=== PATIENT | female | born 1970 | race African-American/Black ===

== ENCOUNTER 2021-02-01 14:05 | Inpatient (IN) ==
[2021-02-01] MEDS ORDERED: SODIUM CHLORIDE 0.9% 1,000 ML IV STA (14:33)
[2021-02-01 14:50] LABS: Basophils % 0.2 % (0.0-0.8); Eosinophils # 0.1 10*3/uL (0.0-0.87); Eosinophils % 1.2 % (0.00-10.9); Hematocrit 40.6 VOL% (35.7-47.0); Hemoglobin 13.8 GM/DL (12.0-16.0); Immature Granulocytes % 0.4 %; Immature Granulocytes Absolute 0.02 #; Lymphocytes # 1.3 10*3/uL (1.4-4.0); Lymphocytes % 24.2 % (21.3-54.2); Mean Corpuscular Volume 89.2 FL (87-102); Mean Platelet Volume 9.9 FL (9.6-12.0); Platelet Count 235 T/CUMM (130-400); Red Blood Count 4.55 MC/CUMM (3.8-5.5); White Blood Count 5.2 T/CUMM (4-12)
[2021-02-01 15:08] LABS: Albumin 3.3 G/DL (3.4-5.0); Bilirubin,Total 0.6 MG/DL (0.20-1.00); Calcium 8.5 MG/DL (8.5-10.1); Osmolality,Calculated 287.4 MOS/KG (273-304); Potassium 4.9 MMOL/L (3.5-5.1); Total Protein 6.9 G/DL (6.4-8.2)
[2021-02-01] MEDS ORDERED: MAGNESIUM SULF RIDER 2 GM/50 ML PREMIX IV ONE (15:57)
[2021-02-01] MEDS ORDERED: GLUCAGON 1 MG VIAL IM PRN (16:01)
[2021-02-01] MEDS ORDERED: DEXTROSE 50% 25 GM/50 ML VIAL IV PRN (16:01)
[2021-02-01] MEDS ORDERED: ONDANSETRON 4 MG/2 ML VIAL IV PRN (16:01)
[2021-02-01] MEDS: ENOXAPARIN 120 MG/0.8 ML SYRINGE SUBCUT SCH (17:35)
[2021-02-01] MEDS: SODIUM CHLORIDE 0.9% 1,000 ML IV SCH (17:52)
[2021-02-01] MEDS: AZITHROMYCIN INJ 500 MG in SODIUM CHLORIDE 0.9% 250 ML IV SCH (18:46)
[2021-02-01] MEDS: ALBUTEROL/IPRATROPIUM 3 ML NEB RESP TX SCH (20:25)
[2021-02-01] MEDS: diphenhydrAMINE CAP 25 MG CAPSULE PO PRN (20:55)
[2021-02-02] MEDS: ACETAMINOPHEN 325 MG TABLET PO PRN ×3 (01:14→16:50)
[2021-02-02] MEDS: ALBUTEROL/IPRATROPIUM 3 ML NEB RESP TX SCH ×4 (01:41→19:54)
[2021-02-02] MEDS: SODIUM CHLORIDE 0.9% 1,000 ML IV SCH ×4 (01:53→22:00)
[2021-02-02 06:55] LABS: Basophils % 0.1 % (0.0-0.8); Eosinophils # 0.1 10*3/uL (0.0-0.87); Eosinophils % 0.9 % (0.00-10.9); Hematocrit 33.3 VOL% (35.7-47.0); Immature Granulocytes % 0.9 %; Immature Granulocytes Absolute 0.13 #; Lymphocytes # 0.5 10*3/uL (1.4-4.0); Lymphocytes % 3.2 % (21.3-54.2); Mean Corpuscular HGB Conc 32.1 GM/DL (32-36); Mean Corpuscular Volume 98.8 FL (87-102); Mean Platelet Volume 12.4 FL (9.6-12.0); Monocytes % 1.9 % (1.7-12.7); Platelet Count 210 T/CUMM (130-400); Red Cell Distribution Width 13.9 % (9.3-17.3)
[2021-02-02 06:58] LABS: Hemoglobin 10.7 GM/DL (12.0-16.0); Red Blood Count 3.37 MC/CUMM (3.8-5.5); White Blood Count 14.9 T/CUMM (4-12)
[2021-02-02 07:01] LABS: Band Neutrophils 1 % (0-10); Eosinophils 2 % (0-10); Hypochromasia 1+; Lymphocytes 6 % (20-55); Microcytosis 1+; Platelet Estimate Adequate; Segmented Neutrophils 90 % (50-85); Total Cells Counted 100
[2021-02-02 07:02] LABS: Osmolality,Calculated 284.5 MOS/KG (273-304); Potassium 4.6 MMOL/L (3.5-5.1)
[2021-02-02] MEDS: PANTOPRAZOLE 40 MG TABLET PO SCH (10:04)
[2021-02-02] MEDS: ENOXAPARIN 120 MG/0.8 ML SYRINGE SUBCUT SCH (10:05)
[2021-02-02] MEDS: diphenhydrAMINE CAP 25 MG CAPSULE PO PRN (10:11)
[2021-02-02] MEDS: MAGNESIUM OXIDE 400 MG TABLET PO SCH ×2 (10:11→20:48)
[2021-02-02] MEDS: MEROPENEM 500 MG in SODIUM CHLORIDE 0.9% 100 ML IV SCH ×2 (10:14→18:06)
[2021-02-02] MEDS: HYDROCORTISONE 1% CREAM 28 GM TUBE TOP SCH ×2 (11:39→20:49)
[2021-02-02] MEDS ORDERED: AMPICILLIN/SULBACTAM 3,000 MG in SODIUM CHLORIDE 0.9% 100 ML IV SCH (12:00)
[2021-02-02] MEDS ORDERED: SODIUM CHLORIDE 0.9% 1,000 ML IV ONE (12:43)
[2021-02-02] MEDS: AZITHROMYCIN INJ 500 MG in SODIUM CHLORIDE 0.9% 250 ML IV SCH (16:51)
[2021-02-02] MEDS: ESCITALOPRAM 10 MG TABLET PO SCH (18:05)
[2021-02-02] MEDS: IBUPROFEN 600 MG TABLET PO PRN (18:20)
[2021-02-02] MEDS: PREGABALIN 75 MG CAPSULE PO SCH (20:48)
[2021-02-02] MEDS: Progesterone Micronized 200 mg capsule PO SCH (20:49)
[2021-02-03] MEDS: ALBUTEROL/IPRATROPIUM 3 ML NEB RESP TX SCH ×4 (01:10→20:20)
[2021-02-03] MEDS: MEROPENEM 500 MG in SODIUM CHLORIDE 0.9% 100 ML IV SCH ×3 (01:45→17:34)
[2021-02-03] MEDS: SODIUM CHLORIDE 0.9% 1,000 ML IV SCH ×3 (01:50→23:30)
[2021-02-03] MEDS: ACETAMINOPHEN 325 MG TABLET PO PRN ×2 (04:22→11:22)
[2021-02-03 05:18] LABS: Eosinophils # 0.2 10*3/uL (0.0-0.87); Eosinophils % 2.3 % (0.00-10.9); Hematocrit 28.1 VOL% (35.7-47.0); Hemoglobin 9.1 GM/DL (12.0-16.0); Immature Granulocytes % 0.5 %; Immature Granulocytes Absolute 0.05 #; Lymphocytes # 0.4 10*3/uL (1.4-4.0); Lymphocytes % 4.4 % (21.3-54.2); Mean Corpuscular HGB Conc 32.4 GM/DL (32-36); Mean Corpuscular Volume 98.9 FL (87-102); Mean Platelet Volume 12.2 FL (9.6-12.0); Neutrophils % 91.8 % (38.7-73.9); Platelet Count 156 T/CUMM (130-400); Red Blood Count 2.84 MC/CUMM (3.8-5.5); Red Cell Distribution Width 14.2 % (9.3-17.3); White Blood Count 9.6 T/CUMM (4-12)
[2021-02-03 05:37] LABS: Calcium 7.4 MG/DL (8.5-10.1); Osmolality,Calculated 291.1 MOS/KG (273-304)
[2021-02-03 05:40] LABS: Calcium 7.5 MG/DL (8.5-10.1); Osmolality,Calculated 288.4 MOS/KG (273-304); Potassium 3.9 MMOL/L (3.5-5.1)
[2021-02-03 06:07] LABS: Band Neutrophils 3 % (0-10); Eosinophils 3 % (0-10); Lymphocytes 3 % (20-55); Segmented Neutrophils 91 % (50-85); Total Cells Counted 100
[2021-02-03 06:08] LABS: Microcytosis 1+; Ovalocytes Slight; Platelet Estimate Adequate
[2021-02-03] MEDS ORDERED: MAGNESIUM SULF RIDER 4 GM/100 ML PREMIX IV ONE (07:25)
[2021-02-03 08:42] LABS: Free T4 (Free Thyroxine) 0.92 NG/DL (0.76-1.46); Thyroid Stimulating Hormone 1.36 uIU/ml (0.358-3.74)
[2021-02-03] MEDS: PANTOPRAZOLE 40 MG TABLET PO SCH (10:12)
[2021-02-03] MEDS: AZITHROMYCIN 250 MG TABLET PO SCH (10:12)
[2021-02-03] MEDS: diphenhydrAMINE CAP 25 MG CAPSULE PO PRN (10:12)
[2021-02-03] MEDS: MAGNESIUM OXIDE 400 MG TABLET PO SCH ×2 (10:13→20:14)
[2021-02-03] MEDS: PREGABALIN 75 MG CAPSULE PO SCH ×2 (10:13→20:14)
[2021-02-03] MEDS: DULoxetine 30 MG CAPSULE PO SCH (10:13)
[2021-02-03] MEDS: IBUPROFEN 600 MG TABLET PO PRN (10:13)
[2021-02-03] MEDS: FOLIC ACID 1 MG TABLET PO SCH (10:14)
[2021-02-03] MEDS: HYDROCORTISONE 1% CREAM 28 GM TUBE TOP SCH (10:15)
[2021-02-03] MEDS: ENOXAPARIN 40 MG/0.4 ML SYRINGE SUBCUT SCH ×2 (10:24→20:14)
[2021-02-03] MEDS: LEVOTHYROXINE 100 MCG TABLET PO SCH (11:22)
[2021-02-03 15:36] LABS: Calcium 7.6 MG/DL (8.5-10.1); Osmolality,Calculated 285.7 MOS/KG (273-304); Potassium 4.3 MMOL/L (3.5-5.1)
[2021-02-03] MEDS ORDERED: PHENOL 1.4% THROAT SPRAY 177 ML BOTTLE PO PRN (16:06)
[2021-02-03] MEDS: ESCITALOPRAM 10 MG TABLET PO SCH (17:30)
[2021-02-03] MEDS: methylPREDNISolone SOD SUC 40 MG/1 ML VIAL IV SCH (17:34)
[2021-02-03] MEDS: Progesterone Micronized 200 mg capsule PO SCH (20:14)
[2021-02-03] MEDS ORDERED: methylPREDNISolone SOD SUC 40 MG/1 ML VIAL IV SCH (21:00)
[2021-02-04] MEDS: ALBUTEROL/IPRATROPIUM 3 ML NEB RESP TX SCH ×4 (00:21→20:28)
[2021-02-04] MEDS ORDERED: HYDROCORTISONE 1% CREAM 28 GM TUBE TOP PRN (01:28)
[2021-02-04] MEDS: SODIUM CHLORIDE 0.9% 1,000 ML IV SCH ×3 (02:30→22:29)
[2021-02-04] MEDS: MEROPENEM 500 MG in SODIUM CHLORIDE 0.9% 100 ML IV SCH ×3 (02:34→17:32)
[2021-02-04] MEDS: methylPREDNISolone SOD SUC 40 MG/1 ML VIAL IV SCH ×2 (04:35→17:35)
[2021-02-04 05:20] LABS: Eosinophils % 0.1 % (0.00-10.9); Hematocrit 26.4 VOL% (35.7-47.0); Hemoglobin 8.6 GM/DL (12.0-16.0); Immature Granulocytes % 0.7 %; Immature Granulocytes Absolute 0.08 #; Lymphocytes # 0.4 10*3/uL (1.4-4.0); Lymphocytes % 3.9 % (21.3-54.2); Mean Corpuscular HGB Conc 32.6 GM/DL (32-36); Mean Corpuscular Volume 99.6 FL (87-102); Mean Platelet Volume 12.3 FL (9.6-12.0); Monocytes % 1.3 % (1.7-12.7); Platelet Count 171 T/CUMM (130-400); Red Blood Count 2.65 MC/CUMM (3.8-5.5); Red Cell Distribution Width 14.5 % (9.3-17.3); White Blood Count 11.1 T/CUMM (4-12)
[2021-02-04 05:38] LABS: Osmolality,Calculated 292.4 MOS/KG (273-304); Potassium 4.6 MMOL/L (3.5-5.1)
[2021-02-04] MEDS: ACETAMINOPHEN 325 MG TABLET PO PRN (05:40)
[2021-02-04] MEDS: LEVOTHYROXINE 100 MCG TABLET PO SCH (05:40)
[2021-02-04 05:41] LABS: Albumin 2.3 G/DL (3.4-5.0); Bilirubin,Direct 1.54 MG/DL (0.0-0.20); Bilirubin,Indirect 0.9 MG/DL (0.0-1.0); Bilirubin,Total 2.4 MG/DL (0.20-1.00); Total Protein 5.8 G/DL (6.4-8.2)
[2021-02-04 06:04] LABS: Band Neutrophils 2 % (0-10); Lymphocytes 4 % (20-55); Platelet Estimate Normal; Segmented Neutrophils 92 % (50-85); Total Cells Counted 100
[2021-02-04] MEDS ORDERED: ESTRADIOL 0.1 MG/24 HR TOP SCH (09:00)
[2021-02-04] MEDS: MAGNESIUM OXIDE 400 MG TABLET PO SCH ×2 (10:03→21:06)
[2021-02-04] MEDS: PREGABALIN 75 MG CAPSULE PO SCH ×2 (10:03→21:05)
[2021-02-04] MEDS: AZITHROMYCIN 250 MG TABLET PO SCH (10:03)
[2021-02-04] MEDS: FOLIC ACID 1 MG TABLET PO SCH (10:04)
[2021-02-04] MEDS: PANTOPRAZOLE 40 MG TABLET PO SCH (10:04)
[2021-02-04] MEDS: ENOXAPARIN 40 MG/0.4 ML SYRINGE SUBCUT SCH ×2 (10:04→21:04)
[2021-02-04] MEDS: DULoxetine 30 MG CAPSULE PO SCH ×2 (10:58→21:06)
[2021-02-04] MEDS: ESCITALOPRAM 10 MG TABLET PO SCH (17:30)
[2021-02-04] MEDS: Progesterone Micronized 200 mg capsule PO SCH (21:05)
[2021-02-05] MEDS: ALBUTEROL/IPRATROPIUM 3 ML NEB RESP TX SCH ×4 (01:17→20:00)
[2021-02-05] MEDS: MEROPENEM 500 MG in SODIUM CHLORIDE 0.9% 100 ML IV SCH ×3 (01:30→17:02)
[2021-02-05] MEDS: SODIUM CHLORIDE 0.9% 1,000 ML IV SCH ×3 (04:13→16:08)
[2021-02-05] MEDS: LEVOTHYROXINE 100 MCG TABLET PO SCH (05:52)
[2021-02-05] MEDS: methylPREDNISolone SOD SUC 40 MG/1 ML VIAL IV SCH ×2 (05:53→16:04)
[2021-02-05 06:14] LABS: Basophils % 0.1 % (0.0-0.8); Eosinophils % 0.1 % (0.00-10.9); Hematocrit 26.2 VOL% (35.7-47.0); Hemoglobin 8.4 GM/DL (12.0-16.0); Immature Granulocytes % 2.3 %; Immature Granulocytes Absolute 0.22 #; Lymphocytes # 1.7 10*3/uL (1.4-4.0); Lymphocytes % 17.1 % (21.3-54.2); Mean Corpuscular HGB Conc 32.1 GM/DL (32-36); Mean Corpuscular Volume 100.4 FL (87-102); Mean Platelet Volume 12.6 FL (9.6-12.0); Neutrophils % 76.4 % (38.7-73.9); Platelet Count 201 T/CUMM (130-400); Red Blood Count 2.61 MC/CUMM (3.8-5.5); Red Cell Distribution Width 14.6 % (9.3-17.3); White Blood Count 9.6 T/CUMM (4-12)
[2021-02-05 06:40] LABS: Calcium 8.5 MG/DL (8.5-10.1); Osmolality,Calculated 295.1 MOS/KG (273-304); Potassium 4.7 MMOL/L (3.5-5.1)
[2021-02-05 06:41] LABS: Anisocytosis 2+; Band Neutrophils 4 % (0-10); Lymphocytes 18 % (20-55); Nucleated Red Blood Cells 2 (0-5); Platelet Estimate Normal; Segmented Neutrophils 74 % (50-85); Total Cells Counted 100
[2021-02-05 06:42] LABS: Burr Cells Few; Macrocytosis 1+
[2021-02-05] MEDS: ENOXAPARIN 40 MG/0.4 ML SYRINGE SUBCUT SCH ×2 (08:26→20:52)
[2021-02-05] MEDS: MAGNESIUM OXIDE 400 MG TABLET PO SCH ×2 (08:27→20:53)
[2021-02-05] MEDS: AZITHROMYCIN 250 MG TABLET PO SCH (08:27)
[2021-02-05] MEDS: ACETAMINOPHEN 325 MG TABLET PO PRN (08:27)
[2021-02-05] MEDS: PANTOPRAZOLE 40 MG TABLET PO SCH (08:28)
[2021-02-05] MEDS: FOLIC ACID 1 MG TABLET PO SCH (08:28)
[2021-02-05] MEDS: PREGABALIN 75 MG CAPSULE PO SCH ×2 (08:28→20:53)
[2021-02-05] MEDS ORDERED: SODIUM CHLORIDE 0.9% 1,000 ML IV PRN (08:36)
[2021-02-05] MEDS: INSULIN LISPRO 100 UNIT/ML SUBCUT SCH ×3 (12:24→20:53)
[2021-02-05 14:21] LABS: Basophils % 0.3 % (0.0-0.8); Eosinophils % 0.1 % (0.00-10.9); Hematocrit 28.4 VOL% (35.7-47.0); Immature Granulocytes % 4.1 %; Immature Granulocytes Absolute 0.44 #; Lymphocytes # 2.2 10*3/uL (1.4-4.0); Lymphocytes % 20.6 % (21.3-54.2); Mean Corpuscular HGB Conc 31.7 GM/DL (32-36); Mean Corpuscular Volume 97.3 FL (87-102); Mean Platelet Volume 12.4 FL (9.6-12.0); Monocytes % 4.8 % (1.7-12.7); NRBC # 0.02 10*3/uL; Neutrophils % 70.1 % (38.7-73.9); Platelet Count 189 T/CUMM (130-400); Red Blood Count 2.92 MC/CUMM (3.8-5.5); Red Cell Distribution Width 15.4 % (9.3-17.3); White Blood Count 10.7 T/CUMM (4-12)
[2021-02-05] MEDS: ESCITALOPRAM 10 MG TABLET PO SCH (17:02)
[2021-02-05] MEDS: Progesterone Micronized 200 mg capsule PO SCH (20:52)
[2021-02-05] MEDS: DULoxetine 30 MG CAPSULE PO SCH (20:53)
[2021-02-06] MEDS: ALBUTEROL/IPRATROPIUM 3 ML NEB RESP TX SCH ×2 (00:50→06:55)
[2021-02-06] MEDS: MEROPENEM 500 MG in SODIUM CHLORIDE 0.9% 100 ML IV SCH ×2 (01:59→09:55)
[2021-02-06] MEDS: SODIUM CHLORIDE 0.9% 1,000 ML IV SCH (02:01)
[2021-02-06] MEDS: LEVOTHYROXINE 100 MCG TABLET PO SCH (05:37)
[2021-02-06] MEDS: methylPREDNISolone SOD SUC 40 MG/1 ML VIAL IV SCH (05:37)
[2021-02-06 06:41] LABS: Basophils # 0.1 10*3/uL (0.0-0.2); Basophils % 0.5 % (0.0-0.8); Eosinophils % 0.2 % (0.00-10.9); Hematocrit 26.9 VOL% (35.7-47.0); Hemoglobin 8.6 GM/DL (12.0-16.0); Immature Granulocytes % 4.8 %; Immature Granulocytes Absolute 0.58 #; Lymphocytes # 3.6 10*3/uL (1.4-4.0); Lymphocytes % 30.1 % (21.3-54.2); Mean Corpuscular Volume 99.3 FL (87-102); Mean Platelet Volume 12.5 FL (9.6-12.0); Monocytes % 7.2 % (1.7-12.7); NRBC # 0.02 10*3/uL; Neutrophils % 57.2 % (38.7-73.9); Platelet Count 187 T/CUMM (130-400); Red Blood Count 2.71 MC/CUMM (3.8-5.5); Red Cell Distribution Width 15.6 % (9.3-17.3); White Blood Count 12.1 T/CUMM (4-12)
[2021-02-06 07:10] LABS: Calcium 8.2 MG/DL (8.5-10.1); Potassium 4.4 MMOL/L (3.5-5.1)
[2021-02-06 07:19] LABS: Eosinophils 1 % (0-10); Hypochromasia Slight; Lymphocytes 29 % (20-55); Microcytosis 1+; Myelocytes 1 %; Ovalocytes Slight; Segmented Neutrophils 56 % (50-85); Total Cells Counted 100
[2021-02-06 07:20] LABS: Platelet Estimate Adequate
[2021-02-06 07:43] VITALS: BP 138/73
[2021-02-06] MEDS: AZITHROMYCIN 250 MG TABLET PO SCH (08:26)
[2021-02-06] MEDS: MAGNESIUM OXIDE 400 MG TABLET PO SCH (08:26)
[2021-02-06] MEDS: PREGABALIN 75 MG CAPSULE PO SCH (08:26)
[2021-02-06] MEDS: PANTOPRAZOLE 40 MG TABLET PO SCH (08:26)
[2021-02-06] MEDS: FOLIC ACID 1 MG TABLET PO SCH (08:26)
[2021-02-06] MEDS: INSULIN LISPRO 100 UNIT/ML SUBCUT SCH (08:27)
[2021-02-06] MEDS: ENOXAPARIN 40 MG/0.4 ML SYRINGE SUBCUT SCH (08:27)
== END 2021-02-06 12:21 | disposition home health service (06) | DRG 682 ==
LOC: EDBD → EDUNIT# → N.ED 14:05 → N.EDINP 14:05 → N.TELEN 17:10
PROVIDERS: ADMIT Hospitalist; ATTEND Hospitalist